=== PATIENT | male | born 1975 | race Caucasian/White ===

== ENCOUNTER 2022-01-16 12:55 | Outpatient (CLI) | payer BC, SELFPAY ==
[2022-01-16 14:00] LABS: Chloride* 103 mmol/L (96-114); Potassium* 4.3 mmol/L (3.6-5.1); Sodium* 138 mmol/L (135-149)
[2022-01-16 14:02] LABS: Creatinine* 0.9 mg/dL (0.5-1.5); Estimated Glomerular Filt Rate 106 ml/min
[2022-01-16 14:03] LABS: Blood Urea Nitrogen* 16 mg/dL (5-24); Calcium* 9.6 mg/dL (8.4-10.6); Carbon Dioxide* 25 mmol/L (20-32); Glucose* 102 mg/dL (60-115)
== END 2022-01-16 12:56 | disposition home or self-care (01) ==
LOC: FBOREF 12:55
PROVIDERS: PCP Family Medicine; Visit Provider Family Medicine
DX: E11.9 Type 2 diabetes mellitus without complications (principal); E78.5 Hyperlipidemia, unspecified
CPT/HCPCS: 80048

== ENCOUNTER 2022-06-07 11:07 | Outpatient (CLI) | payer BC, SELFPAY | END 2022-06-07 11:08 | disposition home or self-care (01) | LOC: NFLDREF 11:08 | PROVIDERS: PCP Family Medicine; Visit Provider Family Medicine | DX: Z00.00 Encounter for general adult medical examination without abnormal findings (principal); E13.9 Other specified diabetes mellitus without complications; E78.5 Hyperlipidemia, unspecified; E11.9 Type 2 diabetes mellitus without complications | CPT/HCPCS: 80061; 84460 ==

== ENCOUNTER 2023-07-07 16:48 | Outpatient (CLI) | payer OTHER, SELFPAY ==
--- OUTSIDE RECORDS SUMMARY | 2023-07-07 16:51 | XMS_ITS | Clinical Summary ---
Author Name Unknown Organization [facility] Address [place], [place] [address] Care Team Providers Care Scout Professional Sports Name Role Phone Pcp, No Primary Care Provider Unavailabl e Allergies No known active allergies Medications Medication Sig Dispensed Refills Start Date End Date Status lancets (MICROLET LANCET)Indications :Other specified diabetes mellitus with hyperglycemia, without long-term current use of insulin (HC) Test 6 times daily 100 Each 5 01/30/2016 Active ibuprofen (ADVIL; MOTRIN) 200 mg tabletIndications: pain Take 800 mg by mouth 4 times daily if needed. Active blood sugar diagnostic (CONTOUR NEXT TEST STRIPS) stripIndications:T ype 2 diabetes mellitus with hyperglycemia, without long-term current use of insulin (HC) Dispense item covered by pt ins. 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 400 Each 3 10/13/2017 Active insulin aspart U-100 (NOVOLOG FLEXPEN U-100 INSULIN) 100 unit/mL solution for injectionIndicatio ns:Type 2 diabetes mellitus without complication, with long-term current use of insulin (HC) Inject 7 Units subcutaneous 3 times daily before meals. 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 30 mL 11/15/2018 Active Active Problems Problem Noted Date Diagnosed Date MAR (latent autoimmune diab etes in adults), managed as type 1 02/05/2017 Resolved Problems Problem Noted Date Diagnosed Date Resolved Date Type 2 diabetes mellitus wit h hyperglycemia, without long-term current use of insulin 06/14/2016 06/14/2016 Diabetes mellitus with hyper glycemia, without long-term current use of insulin 01/28/2016 017 No active medical problems 08/15/2011 1 05/02/2015 Immunizations Name Administration Dates Next Due Tdap 08/08/2017,06/08/2010 Family History Medical History Relation Name Comments Diabetes Sister Relation Name Status Comments Sister Social History Tobacco Use Types Packs/Day Years Used Date Smoking Tobacco: Never Smokeless Tobacco: Never Tobacco Cessation:Counseling Given: Yes Alcohol Use Standard Drinks/Week Comments Yes 0 (1 standard drink = 0.6 oz pur e alcohol) social/ 1-2 a week Sex and Gender Information Value Date Recorded Sex Assigned at Not on file Gender Identity Not on file Sexual Orientation Not on file Obstetrics History Last Filed Vital Signs Vital Sign Reading Time Taken Comments Blood Pressure 124/74 01/20/2018 3:17 PM CDT Pulse 74 01/20/2018 3:17 PM CDT Temperature 36.8 ??C (98.2 ??F) 10/03/2017 10:00 PM C DT Respiratory Rate 20 10/03/2017 10:00 PM CDT Oxygen Saturation 98% 10/03/2017 10:00 PM CDT Inhaled Oxygen Concentration - - Weight 111.1 kg (245 lb) 01/20/2018 3:17 PM CDT Height 172.7 cm (5' 8) 01/20/2018 3:17 PM CDT Body Mass Index 37.25 01/20/2018 3:17 PM CDT Plan of Treatment Health Maintenance Due Date Last Done Comments HIV for age 15-65 1989 Hepatitis C screening for age 18-79 1992 Depression screening for age 12+ 02/04/2018 02/04/2017, 02/01/2016 BMI (ht and wt on same day) for age 18+ 01/20/2019 01/20/2018, 06/13/2017, 02/04/2017, Additional history exists Colonoscopy through age 75 11/14/2019 Lipids for age 45-75 06/13/2022 06/13/2017, 04/08/19 17 COVID-19 vaccine series ( - 2022-24 season) 2022 Influenza for age 9-49 11/30/2023 Tetanus booster 08/09/2027 08/08/2017, 06/08/2010 Tdap Completed 08/08/2017, 06/08/2010 Pneumococcal series for age 6-64 Aged Out No longer eligible based on patient's age to complete this topic Procedures Procedure Name Priority Date/Time Associated Diagnosis Comments LIPID PANEL W REFLEX MEASURED LDL Routine 06/13/2017 3:30 PM CDT 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), managed as type 1 (HC) from Last 3 Months or Most Recently Relevant to Health Maintenance Results * (ABNORMAL) LIPID PANEL W REFLEX MEASURED LDL (06/13/2017 3:30 PM CDT) CHOLESTEROL,TOTAL 212(H) 100 - 199 mg/dL 06/13/2017 4:23 PM CDT [facility] TRIGLYCERIDES 284(H) <150 mg/dL 06/13/2017 4:23 PM CDT [facility] HDL CHOLESTEROL 38(L) >40 mg/dL 8 4:23 PM CDT [facility] NON-HDL CHOLESTEROL 174(H) <145 mg/dl 06/13/2017 4:23 PM CDT [facility] CHOL/HDL RATIO 5.58(H) <4.50 06/13/2017 4:23 PM CDT [facility] LDL CHOLESTEROL 117 <=130 mg/dL 06/13/2017 4:23 PM T [facility] PROVIDER ORDERED STATUS RANDOM 06/13/2017 4:23 PM T [facility] Blood BLOOD SPECIMEN / Unknown Venipuncture / Unknown 06/13/2017 3:30 PM CDT 06/13/2017 3:32 PM CDT Drew Gallo MD CHEMISTRY [facility] [address] [place] [address] from Last 3 Months or Most Recently Relevant to Health Maintenance Advance Directives * Full Code (Latest Code Status on File) Date Activated Date Inactivated Comments 01/28/2016 9:07 PM 01/29/2016 5:17 PM Question Answer Comments Code Status Discussion: Not Discussed * Full Code Date Activated Date Inactivated Comments 01/28/2016 7:48 PM 01/28/2016 9:07 PM Question Answer Comments Code Status Discussion: Not Discussed Care Teams Scout Professional Sports Relationship Specialty Start Date End Date Pcp, No . PCP - General 04/28/20
== END 2023-07-07 16:49 | disposition home or self-care (01) ==
LOC: NFLDREF 16:49
PROVIDERS: PCP Family Medicine; Visit Provider Family Medicine
DX: Z13.228 Encounter for screening for other metabolic disorders (principal)
CPT/HCPCS: 80048

== ENCOUNTER 2023-07-09 06:03 | Day surgery (SDC) | payer OTHER, SELFPAY ==
[2023-07-09] MEDS: fentaNYL 100 MCG/2 ML inj IVP (05:57)
--- OUTSIDE RECORDS SUMMARY | 2023-07-09 06:08 | XMS_ITS | Clinical Summary ---
Author Name Unknown Organization [facility] Address [place], [place] [address] Care Team Providers Care Air Carrier Inspector Name Role Phone Pcp, No Primary Care [...] DAILY 300 Each 3 10/13/2017 Active Insulin [place], Disposable, (BD INSULIN PEN NEEDLE UF MINI) [...] - 199 mg/dL 06/13/2017 4:23 PM CDT [facility] TRIGLYCERIDES 284(H) <150 mg/dL 06/13/2017 4:23 PM CDT [facility] HDL CHOLESTEROL 38(L) >40 mg/dL 8 4:23 PM CDT [facility] NON-HDL CHOLESTEROL 174(H) <145 mg/dl 06/13/2017 4:23 PM CDT [facility] CHOL/HDL RATIO 5.58(H) <4.50 06/13/2017 4:23 PM CDT [facility] LDL CHOLESTEROL 117 <=130 mg/dL 06/13/2017 4:23 PM T [facility] PROVIDER ORDERED STATUS RANDOM 06/13/2017 4:23 PM T [facility] Blood BLOOD SPECIMEN / Unknown Venipuncture / Unknown 06/13/2017 3:30 PM CDT 06/13/2017 3:32 PM CDT Drew Gallo MD CHEMISTRY [facility] [address] [place] [address] from Last 3 Months or Most Recently [...] Code Status Discussion: Not Discussed Care Teams Air Carrier Inspector Relationship Specialty Start Date End Date Pcp, No . PCP - General 04/28/20
[2023-07-09 06:16] VITALS: BMI 39.9
[2023-07-09 06:49] VITALS: BP 134/89; PULSE 69; RESP 16; TEMP 36.9; O2SAT 96
[2023-07-09] MEDS: LACTATED RINGERS 1000 ML 1,000 ML 100 ML IV (06:51)
[2023-07-09] MEDS: SODIUM CHLORIDE 0.9 % (FLUSH) 10 ML SYRINGE IVF (06:51)
[2023-07-09 07:12] VITALS: BP 131/86; PULSE 74; RESP 16; TEMP 36.9; O2SAT 96
[2023-07-09] MEDS: MIDAZOLAM HCL 1 MG/ML inj IVP (07:12)
[2023-07-09 07:15] VITALS: BP 121/85; PULSE 72; RESP 16; O2SAT 96
--- NOTE | 2023-07-09 07:20 | SUR.PREOP ---
TIME?OUT:?711 PT/RN/MDA?VERIFICATION?OF?SURGICAL?SITE,?PROCEDURE,?AND?CONSENT OBTAINED?PRIOR?TO?INVASIVE?PROCEDURE.
[2023-07-09] MEDS: CEFAZOLIN 2 GM in 0.9 % SODIUM CHLORIDE Mini-bag 100 ML IVPB (07:34)
--- NOTE | 2023-07-09 07:46 | P.NB_ITS ---
Nerve Block Nerve Block Time Seen by Provider: 07:18 Date Seen: 07/09/23 Type of block requested by surgeon for post-operative analgesia: axillary Side: right Time out performed: Yes Verification of patient name: Yes Verification of date of : Yes Site marking: site marked Name of person performing procedure: Cas Continuous monitoring Was continuous monitoring of O2 sat, B/P, telemetry monitor, recorded every 15 minutes?: Yes Procedure Checklist: sterile prep, needles and gloves Ultrasound guided. Images saved: Yes Medications given in 5ml increments after negative aspiration: Ropivicaine %: 0.5 mL: 15 Needle gauge: 22 and Lidocaine %: 2 mL: 15 Patient tolerated procedure well: Yes Additional comments: Needle noted adjacent to nerve Block Charges Block Charge (with Pro Fee): Brachial Plexus Use of Ultrasound Machine for Block: Yes- US Guidance/pain block
--- NOTE | 2023-07-09 07:47 | W.ANESCHARGE ---
Anesthesia Charges Start Date/Time Anesthesia Start Date: 07/09/23 Anesthesia Start Time: 07:22 Stop Date/Time Anesthesia Stop Date: 07/09/23 Anesthesia Stop Time: 08:19
--- NOTE | 2023-07-09 08:00 | PM.ORPRC ---
Procedure Note Date of procedure: 07/09/23 Procedure: PREOPERATIVE DIAGNOSIS: 1. Left dorsal wrist benign mass/cyst POSTOPERATIVE DIAGNOSIS: 1. Left dorsal wrist benign mass PROCEDURE: 1. Left dorsal wrist benign mass open excision (5 x 8 x 9 mm) SURGEON: Ever Conklin MD. HOSE FINISHER: Ty Ruiz PA-C - Of note, an fast food sales assistant was critical for this case to aid in patient positioning, tissue retraction, limb manipulation/positioning, patient safety, & closure. ANESTHESIA: Regional block plus MAC EBL: 1 mL IMPLANTS: None TOURNIQUET: 15 minutes at 225 torr COMPLICATIONS: None evident INDICATIONS: The patient is a pleasant 47-year-old male who has experienced left dorsal wrist growth. Clinically, this was suspicious of a ganglion cyst. He has experienced pain that has progressively gotten worse. Nonoperative management has been tried but unsuccessful. Given the failure of nonoperative management, and how this affects daily life, surgery was recommended. DESCRIPTION OF PROCEDURE: Following a thorough discussion of risks, benefits, and alternatives consent was obtained and the operative extremity was marked. The patient was brought to the operating room and placed supine on the operating table. No antibiotics were administered as this was planned to be a local case only. Proper time-out was performed identifying proper patient, site, and procedure. The operative extremity was prepped and draped in the appropriate sterile fashion using ChloraPrep. The limb was exsanguinated and the tourniquet inflated. An incision was made on the dorsal aspect of left wrist longitudinally after clearly identifying this growth with palpation. Sharp incision through skin and blunt dissection through subcutaneous tissue allowed us to identify the structure. We were initially trying to separate it like a typical ganglion cyst, but it did not seem to separate from the overlying extensor retinaculum. Instead, it seemed to be a part of/incorporated into the retinaculum. Thus, a Metzenbaum scissors was utilized to circumscribe this mass and release it from the deep retinacular tissue. We did not take a full-thickness retinaculum. The mass that was excised measured approximately 5 x 8 x 9 mm. This was sent for permanent pathology. It did not feel to be a ganglion cyst. It was punctured and no fluid was expressed. Instead, did feel to be all tissue/fibrous tissue. At this stage, the tourniquet was deflated and hemostasis achieved. Thorough irrigation normal saline was performed. Closure was performed with 3-0 Vicryl and 4-0 Stratafix. Soft dressings were applied, and the patient was awoken/transferred to the recovery room in stable condition. PLAN: 1. Encourage elevation of the operative extremity. 2. Range of motion of the operative extremity/digits as tolerated. 3. Ibuprofen, acetaminophen and/or oxycodone as needed for pain. 4. Follow up with PA visit in 12-16 days for wound check
[2023-07-09 08:20] VITALS: BP 128/83; PULSE 81; RESP 14; TEMP 36.4; O2SAT 94
--- NOTE | 2023-07-09 08:21 | W.ANESCHARGE ---
Anesthesia Charges Start Date/Time Anesthesia Start Date: 07/09/23 Anesthesia Start Time: 07:22 Stop Date/Time Anesthesia Stop Date: 07/09/23 Anesthesia Stop Time: 08:19
[2023-07-09 08:30] VITALS: BP 135/74; PULSE 73; RESP 16; O2SAT 95
[2023-07-09 08:45] VITALS: BP 127/85; PULSE 75; RESP 16; O2SAT 95
== END 2023-07-09 09:25 | disposition home or self-care (01) ==
PROVIDERS: PCP Family Medicine; Visit Provider Orthopaedic Surgery Sports Medicine
PROC: (CPT 25111; principal; 2023-07-09 07:15)
DX: M67.432 Ganglion, left wrist (principal); G89.18 Other acute postprocedural pain; E13.8 Other specified diabetes mellitus with unspecified complications
CPT/HCPCS: 25111; 01810; 64415; 76942; 82962; 88304; J0690; J1100; J2250; J2405; J2704; J2795; J3010; J7120; L3908

== ENCOUNTER 2023-11-11 14:21 | Outpatient (CLI) | payer OTHER, SELFPAY ==
--- OUTSIDE RECORDS SUMMARY | 2023-11-11 14:23 | XMS_ITS | Clinical Summary ---
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 400 Each 10/13/2017 Active insulin aspart U-100 (NOVOLOG FLEXPEN [...] U-100 INSULN) 100 unit/mL (3 mL) penIndications:LAD Sergio (latent autoimmune diabetes in adults), managed as [...] - 199 mg/dL 06/13/2017 4:23 PM CDT [facility] TRIGLYCERIDES 284(H) <150 mg/dL 06/13/2017 4:23 PM CDT [facility] HDL CHOLESTEROL 38(L) >40 mg/dL 8 4:23 PM CDT [facility] NON-HDL CHOLESTEROL 174(H) <145 mg/dl 06/13/2017 4:23 PM CDT [facility] CHOL/HDL RATIO 5.58(H) <4.50 06/13/2017 4:23 PM T [facility] LDL CHOLESTEROL 117 <=130 mg/dL 06/13/2017 4:23 PM T [facility] PROVIDER ORDERED STATUS RANDOM 06/13/2017 4:23 PM T [facility] Blood BLOOD SPECIMEN / Unknown Venipuncture / Unknown 06/13/2017 3:30 PM CDT 06/13/2017 3:32 PM CDT Drew Gallo MD CHEMISTRY [address] [place] [address] from Last 3 Months or Most Recently [...] Code Status Discussion: Not Discussed Care Teams Staff Psychologist Relationship Specialty Start Date End Date Pcp, No . PCP - General 04/28/20
== END 2023-11-11 14:22 | disposition home or self-care (01) ==
PROVIDERS: PCP Family Medicine; Visit Provider Family Medicine
DX: E78.2 Mixed hyperlipidemia (principal); E13.65 Other specified diabetes mellitus with hyperglycemia; Z79.4 Long term (current) use of insulin
CPT/HCPCS: 80061; 84460

== ENCOUNTER 2024-06-11 12:25 | Outpatient (CLI) | payer OTHER, SELFPAY | END 2024-06-11 12:26 | disposition home or self-care (01) | PROVIDERS: PCP Family Medicine; Visit Provider Family Medicine | DX: E78.2 Mixed hyperlipidemia (principal); E13.9 Other specified diabetes mellitus without complications; R53.83 Other fatigue; E66.09 Other obesity due to excess calories | CPT/HCPCS: 80048; 84443 ==

== ENCOUNTER 2024-11-12 08:38 | Outpatient (CLI) | payer OTHER, SELFPAY | END 2024-11-12 08:39 | disposition home or self-care (01) | PROVIDERS: PCP Family Medicine; Visit Provider Family Medicine | DX: E78.2 Mixed hyperlipidemia (principal) | CPT/HCPCS: 80061; 84460 ==

== ENCOUNTER 2025-03-14 14:31 | Emergency (ER) | payer OTHER, SELFPAY ==
[2025-03-14 14:37] VITALS: BP 129/83; PULSE 82; RESP 16; TEMP 36.5; O2SAT 98; BMI 28.1
--- NOTE | 2025-03-14 15:44 | ED.GENADULT ---
HPI - General Adult General Chief complaint: Extremity Pain/Injury, Upper Stated complaint: Pain from left hand to shoulder Time Seen by Provider: 03/14/25 15:31 History of Present Illness HPI narrative: patient is a 49-year-old with about a 1 month history of pain in his left arm. It is there most of the time although it comes and goes a little bit. Bothersome at night only as trouble getting comfortable. Pain is in the scapular area and then radiates down over the deltoid and into the extensor part of the forearm. He has a little bit of aching in his whole hand, little bit of tingling in his 1st and 2nd finger. Was previously diagnosed with carpal tunnel in the left wrist, he had for got about that diagnosis, assumes that got better. Denies any recent trauma, no fevers, no unintended weight loss, he has lost weight but that is secondary to Wegovy. He has not taken anything for his symptoms, says he just generally does not take medications. Has been seeing a chiropractor without improvement. Denies weakness, numbness or loss of function. Related Data Previous Rx's ?Medication ?Instructions ?Recorded Diabetic Test Strips #400 ea 07/30/23 pen needle, diabetic 31 gauge x 1 ea miscellaneous QID #100 ea 11/13/2308/13 (BD Ultra-Fine Short Pen Needle) naproxen 500 mg tablet 500 mg PO BID #180 tabs 11/25/23 insulin aspart U-100 100 unit/mL 10 unit (0.1 mL) subcut BID #15 mL 02/23/24 (3 mL) subcutaneous pen insulin glargine 100 unit/mL (3 35 unit (0.35 mL) subcut QPM #30 mL 07/20/24 mL) subcutaneous pen (Lantus Solostar U-100 Insulin) atorvastatin 40 mg tablet 40 mg PO QHS #90 tabs 11/18/24 tirzepatide 7.5 mg/0.5 mL 7.5 mg (0.5 mL) subcut QWEEK #2 mL 01/01/25 subcutaneous pen injector Allergies Allergy/AdvReac Type Severity Reaction Status Date / Time No Known Drug Allergies Allergy Verified 11/12/24 08:17 Review of Systems Status of ROS: Reports: 6 or more systems reviewed and unremarkable except as noted in History and below PFSH PFS Medical History Mixed hyperlipidemia ?E78.2 - Mixed hyperlipidemia (ICD-10) Rotator cuff tear, right ?M75.101 - Unspecified rotator cuff tear or rupture of right shoulder, not specified as traumatic (ICD-10) Arthritis of right acromioclavicular joint ?M19.011 - Primary osteoarthritis, right shoulder (ICD-10) 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 - Other benign neoplasm of skin, unspecified (ICD-10) Latent autoimmune diabetes in adults, 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) ?E13.9 - Other specified diabetes mellitus without complications (ICD-10) Surgical History S/P excision of ganglion cyst (07/09/23) ?Z98.890 - Other specified postprocedural states (ICD-10) History of excision of mass ?Z98.890 - Other specified postprocedural states (ICD-10) History of appendectomy ?Z90.49 - Acquired absence of other specified parts of digestive tract (ICD-10) Social History Narrative: Works in heating and air, nonsmoker What is your current living situation?: I presently have a place to live Problems where you live: no known problems In the past 12 months, utilities in danger of being shut off: no In past 12 months, lack of transportation kept you from medical appts, meetings, work, or getting things needed for daily living: no In the past 12 mos, have been you worried that your food would run out before you had money to buy more?: never true In the past 12 mos, the food you bought just didn't last and you didn't have money to buy more?: never true Smoking Status: Never smoker How often do you have a drink containing alcohol: 2-4 times a month How many standard drinks containing alcohol do you have on a typical day: 1 or 2 How often do you have six or more drinks on one occasion: Never AUDIT-C Alcohol total score: 2 Non-prescribed substance use: denies use How often does anyone, including family, friends and others, physically hurt you: never How often does anyone, including family, friends and others, insult or talk down to you: never How often does anyone, including family, friends and others, threaten you with harm: never How often does anyone, including family, friends and others, scream or curse at you: never Exam Narrative: Exam Narrative: Vital signs reviewed In general, alert, nontoxic man. He looks comfortable. Neck: Nontender to palpation. Extremities: Normal in appearance without edema, bruising, swelling or erythema. Neurologic: He has 5 of 5 strength in bilateral upper and lower extremities, normal sensation. Const: Vital Signs, click to edit/add: Vital Signs - 24 hr 03/14/25 14:37 Temperature 97.7 F Pulse Rate [Pulse Oximeter] 82 Respiratory Rate 16 Blood Pressure [Ri ght Upper Arm] 129/83 Pulse Oximetry 98 Oxygen Delivery Me thod Room Air Course Course ED Course: Patient presents with some radicular symptoms in his left arm, discussed that these can be due to a problem in the neck, he has some spasm in his trapezius and rhomboids which could be contributing as well. Recommended a course of steroids here today, I do not see any red flags suggesting he needs immediate imaging. Did recommend follow-up with Dr. Gallo and discussion of further evaluation, possible MRI, consideration of PT, injection etcetera once the diagnosis is confirmed. Certainly can take ibuprofen or Tylenol if needed. Reviewed reasons to return such as fevers, weakness or loss of function, severe uncontrolled pain. Vital Signs Vital signs: Initial Vital Signs Temperature 97.7 F 03/14/25 14:37 Temperature Source Temporal Artery Scan 03/14/25 14:37 Pulse Rate 82 03/14/25 14:37 Respiratory Rate 16 03/14/25 14:37 Blood Pressure 129/83 03/14/25 14:37 Blood Pressure Mean 98 03/14/25 14:37 Blood Pressure Position Sitting 03/14/25 14:37 Pulse Oximetry 98 03/14/25 14:37 Oxygen Delivery Method Room Air 03/14/25 14:37 Vital Signs Temperature 97.7 F 03/14/25 14:37 Pulse Rate 82 03/14/25 14:37 Respiratory Rate 16 03/14/25 14:37 Blood Pressure 129/83 03/14/25 14:37 Pulse Oximetry 98 03/14/25 14:37 Oxygen Delivery Method Room Air 03/14/25 14:37 Temperature 97.7 F 03/14/25 14:37 Pulse Rate 82 03/14/25 14:37 Respiratory Rate 16 03/14/25 14:37 Blood Pressure 129/83 03/14/25 14:37 Pulse Oximetry 98 03/14/25 14:37 Oxygen Delivery Method Room Air 03/14/25 14:37 Discharge Plan Discharge Clinical Impression: Radiculopathy affecting upper extremity Patient Disposition: Home, Self-Care Condition: Stable Additional Instructions: as discussed, pain in your arm may be coming from a nerve in your neck, or could be related to muscle spasm in your upper back as well. For now, I am putting you on a course of prednisone, you should take Four tablets daily for 3 days, then3 tablets daily for 3 days, then 2 for 3 days, then 1 for 3 days. make an appointment to see Dr. Gallo, MRI of your neck may be helpful in determining being the source for symptoms. Other treatment options may include injection or physical therapy. If you have severe uncontrolled pain, new symptoms such as weakness, return to the ER at any time. Prescriptions: No Action insulin aspart U-100 100 unit/mL (3 mL) insulin pen 10 unit subcut BID Qty: 15 3RF (DME) Diabetic Test Strips Misc See Rx Instructions .Route Qty: 400 3RF Rx Instructions: Test blood sugars QID pen needle, diabetic [BD Ultra-Fine Short Pen Needle] 31 gauge x 5/16 needle 1 ea miscellaneous QID Qty: 100 3RF naproxen 500 mg tablet 500 mg PO BID Qty: 180 3RF insulin glargine [Lantus Solostar U-100 Insulin] 100 unit/mL (3 mL) insulin pen 35 unit subcut QPM Qty: 30 1RF atorvastatin 40 mg tablet 40 mg PO QHS Qty: 90 3RF tirzepatide 7.5 mg/0.5 mL pen injector 7.5 mg subcut QWEEK Qty: 2 2RF Follow Up/Referrals: Drew Gallo MD [Primary Care Provider, Family Practice] Stand Alone Forms: MyHealth Info Instructions
--- OUTSIDE RECORDS SUMMARY | 2025-03-14 17:27 | XMS_ITS | Clinical Summary ---
Author Organization [facility] Address [address] [place] [id number] Care Team Providers Care Supervisor Area Name Role Phone Pcp, No Primary Care Provider Unavailabl e Allergies No known active allergies Medications MedicationSigDispense QuantityRefillsLast FilledStart DateEnd DateStatus lancets (MICROLET LANCET) Indications:Other specified diabetes mellitus with hyperglycemia, without long- term current use of insulin (HC)Test 6 times daily 100 Each Active ibuprofen (ADVIL; MOTRIN) 200 mg tablet Indications:painTake 800 mg by mouth 4 times daily if needed.Active blood sugar diagnostic (CONTOUR NEXT TEST STRIPS) strip Indications:Type 2 diabetes mellitus with hyperglycemia, without long-term current use of insulin (HC)Dispense item covered by pt ins. 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 400 Each Active insulin aspart U-100 (NOVOLOG FLEXPEN U-100 INSULIN) 100 unit/mL solution for injection Indications:Type 2 diabetes mellitus without complication, with long-term current use of insulin (HC)Inject 7 Units subcutaneous 3 times daily before meals. 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 30 mL 11/15/2018Active Active Problems ProblemNoted DateDiagnosed DateLADA (latent autoimmune diabetes in adults), managed as type Resolved Problems ProblemNoted DateDiagnosed DateResolved DateType 2 diabetes mellitus with hyperglycemia, without long-term current use of tajpktr91 Diabetes mellitus with hyperglycemia, without long-term current use of insulin No active medical areyqbjt61 Immunizations ImmunizationAdministration DatesNext JvlPvwc3908/08/2017,06/08/2010 Family History Medical HistoryRelationNameCommentsDiabetesSisterRelationNameStatusComments Sister Social History Tobacco UseTypesPacks/DayYears UsedDateSmoking Tobacco: NeverSmokeless Tobacco: Never Tobacco Cessation:Counseling Given: Yes Alcohol UseStandard Drinks/WeekCommentsYes0 (1 standard drink = 0.6 oz pure alcohol)social/ 1-2 a weekSex and Gender InformationValueDate RecordedSex Assigned at BirthNot on fileLegal OjnMtjd3504/13/2012 5:27 AM CSTGender Identity Not on fileSexual OrientationNot on fileOccupationIndustryJob Start DateJob End DateNot on fileNot on fileNot on fileNot on file Last Filed Vital Signs Vital SignReadingTime TakenCommentsBlood Xkxywxmf200/7410 3:17 PM CDT Jfrwj0589 3:17 PM PMJOogpbwecvho59.8 ??C (98.2 ??F)10/03/2017 10:00 PM CDTRespiratory Lncx851510/03/2017 10:00 PM CDTOxygen Fqmlswckzp04%10/03/2017 10:00 PM CDTInhaled Oxygen Concentration--Ylytkh638.1 kg (245 lb)01/20/2018 3:17 PM IYPYcffvz024.7 cm (5' 8)01/20/2018 3:17 PM CDTBody Mass Index37.251 3:17 PM CDT Plan of Treatment Health MaintenanceDue DateLast DoneCommentsHIV for age 15-65011/13/1989Hepatitis C screening for age 18-7911/13/1992Hepatitis B series for 19+ (1 of 3 - 19+ 3- dose series)1993Depression screening for age 12+, 02/01/2016BMI (ht and wt on same day) for age 18+, 06/13/2017, 02/04/2017, Additional history existsLipids for age 45-06/13/2017, 04/08/2016Pneumococcal series for age 50+ (1 of 1 - PCV)2024 Zoster (shingles) series for age 50+ (1 of 2)5COVID-19 vaccine series (1 - 2024-26 season)2024Influenza Vaccine (#1)2024Fecal testing sDNA-FIT (Cologuard) for age 45-/05/2023Tetanus xpiokly5108/09/2027 08/08/2017, 06/08/2010RSV vaccine for adults or (1 - 1-dose 75+ series)2049 Procedures Procedure NamePriorityDate/TimeAssociated DiagnosisCommentsLIPID PANEL W REFLEX MEASURED TWBThjzigx99/16/2018 3:30 PM CDT 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), managed as type 1 (HC) from Last 3 Months or Most Recently Relevant to Health Maintenance Results * (ABNORMAL) LIPID PANEL W REFLEX MEASURED LDL (06/13/2017 3:30 PM CDT)Component ValueRef RangeTest MethodAnalysis TimePerformed AtPathologist Signature CHOLESTEROL,HEFGS768(H)100 - 199 mg/dL06/13/2017 4:23 PM CDTDISTRICT THE MEDICAL CENTERTRIGLYCERIDES284(H)<150 mg/dL06/13/2017 4:23 PM CDT [facility] CENTERHDL SVIRGEKRRFF35(L)>40 mg/dL06/13/2017 4:23 PM CDTDISTRICGEORGETOWN COMMUNITY HOSPITALNON-HDL XCTDBQVMRAD941(H)<145 mg/dl06/13/2017 4:23 PM CDTDISTRICT THE MEDICAL CENTERCHOL/HDL RATIO 5.58(H)<4.50006/13/2017 4:23 PM CDTDISTRICT THE MEDICAL CENTERLDL GGEAZTZZTSP691<=130 mg/dL06/13/2017 4:23 PM CDTDISTRICT THE MEDICAL CENTERPROVIDER ORDERED MALDAETDNUUN96/16/2018 4:23 PM CDTDISTRICGEORGETOWN COMMUNITY HOSPITALSpecimen (Source)Anatomical Location / LateralityCollection Method / VolumeCollection TimeReceived TimeBloodBLOOD SPECIMEN / Unknown Venipuncture / Uewrtvv8306/13/2017 3:30 PM CDT06/13/2017 3:32 PM CDT Narrative Authorizing ProviderResult TypeResult StatusDavid Juliano Gallo MDCHEMISTRY Final ResultPerforming OrganizationAddressCity/State/ZIP CodePhone Number [facility] [address] [place] [address] from Last 3 Months or Most Recently Relevant to Health Maintenance Insurance * Guarantor: Ryan Pat TypeRelation to PatientDate of PhoneBilling AddressPersonal/BhsvbnHulm63/[birth year][address] [place] [id number] * Guarantor: Ryan Pat TypeRelation to PatientDate of PhoneBilling AddressWorkers TneuNovo60/16/1976 [address] [place] [address] * Guarantor: Ryan Pat JAccount TypeRelation to PatientDate of PhoneBilling AddressWorkers EmbsHsrs21/16/[address] [place] [address] * Guarantor: [employer] CONSTRUCTIONAccount TypeRelation to PatientDate of PhoneBilling AddressOcc Health/CorpEmployer [phone] [place] [address] * Guarantor: CELE[employer] HARDWAREAccount TypeRelation to PatientDate of BirthPhone Billing AddressOcc Health/RuzkVeimbirl84/01/[address] [place] [address] Advance Directives * Full Code (Latest Code Status on File) Date ActivatedDate QzqlyzbgkinSmbebzxn49/30/2016 9:07 PM10 5:17 PM QuestionAnswerCommentsCode Status Discussion:* Not Discussed * Full Code Date ActivatedDate LjncwdejzswCjnrtqsf68/30/2016 7:48 PM10 9:07 PM QuestionAnswerCommentsCode Status Discussion:* Not Discussed Care Teams Team MemberRelationshipSpecialtyStart DateEnd Date Pcp, Roxanne . PCP - General04/28/20
== END 2025-03-14 16:02 | disposition home or self-care (01) ==
PROVIDERS: Emergency Provider Emergency Medicine; PCP Family Medicine
DX: M54.10 Radiculopathy, site unspecified (principal); M79.602 Pain in left arm
CPT/HCPCS: 99283; 99284